=== PATIENT | male | born 1995 | race Caucasian/White ===

== ENCOUNTER → 2021-07-11 09:04 | Outpatient (CLI) | payer OTHER, SELFPAY ==
[2021-07-11 10:14] LABS: Alanine Aminotransferase 36 U/L (12-78); Albumin Level 4.3 g/dl (3.5-5.0); Albumin/Globulin Ratio 1.4 (1.1-1.8); Alkaline Phosphatase 112 U/L (38-126); Anion Gap 15.5 mEq/L (5-15); Aspartate Amino Transferase 48 U/L (17-59); Bilirubin,Total 0.4 mg/dl (0.2-1.3); Blood Urea Nitrogen 17 mg/dl (9-20); Calcium 9.3 mg/dl (8.4-10.2); Carbon Dioxide 28 mmol/L (22.0-30.0); Chloride 101 mmol/L (98-107); Chol/HDL Ratio 3.4 (1-3.5); Cholesterol 168 mg/dl (140-200); Estimated Glomerular Filt Rate 89 ml/min (>60); GFR (African American) 108 ML/MIN (>60); Glucose 107 mg/dl (74-100); HDL Cholesterol 49 mg/dl (40-60); Potassium 4.5 mmoL/L (3.5-5.1); Sodium 140 mmol/L (136-145); Total Protein,Serum 7.3 g/dl (6.3-8.2); Triglycerides 74 mg/dl (30-150); VLDL Cholesterol 15 mg/dL (0-40)
[2021-07-11 10:25] LABS: Direct LDL Cholesterol 93.75 mg/dL (100-129)
== END ==
PROVIDERS: Visit Provider Family Medicine
DX: Z00.00 Encounter for general adult medical examination without abnormal findings (principal)
CPT/HCPCS: 36415; 80053; 80061

== ENCOUNTER → 2022-05-17 07:42 | Outpatient (CLI) | payer BC, SELFPAY ==
--- NOTE | 2022-05-17 07:43 | CT_ITS ---
FINAL REPORT TECHNIQUE: Axial CT images of the abdomen were obtained with oral and IV contrast. Coronal reformatted images were also obtained. This study was performed with techniques to keep radiation doses as low as reasonably achievable (ALARA). Individualized dose reduction techniques using automated exposure control or adjustment of mA and/or kV according to the patient''s size were employed. CLINICAL HISTORY: abdominal pain, hernia FINDINGS: There is mild bibasilar atelectasis. The liver has an unremarkable appearance, without evidence of mass. The gallbladder appears normal without evidence of gallstones. There is no evidence of biliary ductal dilatation. The pancreas appears normal. The spleen size is within normal limits. There is no evidence of renal mass or hydronephrosis. There is no evidence of adenopathy. No abnormal fluid collection is seen. There is a supraumbilical hernia containing fat only. The hernia orifice measures 16 mm in transverse dimension. The hernia sac measures 24 mm in transverse dimension. There is mild stranding of the fat in the hernia. IMPRESSION: No acute intra-abdominal abnormality. Supraumbilical hernia containing fat only. Reviewed, Interpreted and Dictated by Dwight Ferguson III, MD Transcribed by Jackeline Hay Authenticated and [facility]
== END ==
PROVIDERS: PCP Family Medicine; Visit Provider Surgery
DX: R10.9 Unspecified abdominal pain (principal)
CPT/HCPCS: 74160; Q9967

== ENCOUNTER → 2022-11-02 14:13 | Outpatient (CLI) | payer BC, SELFPAY ==
[2022-11-02 15:10] LABS: Basophils # 0.1 K/mm3 (0-0.2); Basophils % 0.7 % (0.1-2.0); Eosinophils # 0.1 K/mm3 (0.0-0.4); Eosinophils % 1.4 % (0.1-12.0); Hematocrit 48.7 % (42.0-52.0); Hemoglobin 15.9 g/dL (14.1-18.0); Lymphocytes # 1.9 K/mm3 (0.7-4.5); Lymphocytes % 29.9 % (10-50); Mean Corpuscular HGB Conc 32.7 g/dL (31.8-35.4); Mean Corpuscular Hemoglobin 31.9 pg (27.0-31.2); Mean Corpuscular Volume 97.6 fl (80-94); Mean Platelet Volume 9.4 fl (7.4-10.4); Monocytes # 0.6 K/mm3 (0.1-1.0); Monocytes % 9.3 % (1.7-9.3); Neutrophils # 3.8 K/mm3 (1.8-7.8); Neutrophils % 58.7 % (37.0-80.0); Platelet Count 226 K/mm3 (142-424); Red Blood Count 4.99 M/mm3 (4.60-6.20); Red Cell Distribution Width 13.2 % (11.5-17.5); White Blood Count 6.5 K/mm3 (4.8-10.8)
[2022-11-02 15:27] LABS: Anion Gap 13.4 mEq/L (5-15); Blood Urea Nitrogen 25 mg/dl (9-20); Calcium 8.8 mg/dl (8.4-10.2); Carbon Dioxide 27 mmol/L (22.0-30.0); Chloride 104 mmol/L (98-107); Estimated Glomerular Filt Rate 79 ml/min (>60); GFR (African American) 96 ML/MIN (>60); Glucose 71 mg/dl (74-100); Potassium 4.4 mmoL/L (3.5-5.1); Sodium 140 mmol/L (136-145)
== END ==
PROVIDERS: PCP Emergency Medicine; Visit Provider Surgery
DX: Z01.812 Encounter for preprocedural laboratory examination (principal); K42.9 Umbilical hernia without obstruction or gangrene
CPT/HCPCS: 36415; 80048; 85025

== ENCOUNTER 2022-11-08 06:04 | Day surgery (SDC) | payer BC, SELFPAY ==
[2022-11-04 09:43] VITALS: BMI 29.7
[2022-11-08] VITALS (12 sets, daily range): BP systolic 125–153; BP diastolic 53–83; PULSE 72–86; RESP 16–18; TEMP 36.6–43; O2SAT 90–97
--- NOTE | 2022-11-08 06:50 | P.HP_ITS ---
HPI HPI HPI: Patient presents for umbilical/ventral hernia repair.? He is a 27-year-old male referred by Dr. Nhan Solitario for umbilical hernia.? I had initially seen him in the office on 05/11/2022.? He works in maintenance at [employer].? He did have an umbilical hernia repair done as an 6-year-old for persistent hernia.? Over several months he has noticed a bulge toward the superior aspect of his umbilical area.? He states that his has noticed that.? He does lift heavy weights at [employer] and has noticed a bulge when straining.? He has not had any significant pain from this however.? He wished to wait until at least September if possible to undergo any potential surgery.? When I saw him in the office he had a clinical hernia superior to his umbilicus but I was unable to palpate the exact size.? He underwent CT scan which revealed supraumbilical hernia with a defect measuring about 16 mm.? . [facility] Disclaimer: The information contained in this section may have been updated after the lennyen zayra was seen, as this information can be updated by other users. Medical History Allergies History of gastroesophageal reflux (GERD) Surgical History History of hernia surgery Family History Skin cancer Colon cancer Social History Smoking Status: Never smoker alcohol intake: never substance use type: denies use current occupational status: employed Travel in the last 8 weeks: None Meds Home Medications and Allergies Home Medications Medication Instructions Recorded Confirmed Type testosterone 100 mg/mL 200 mg IM WEEKLY Supplement 11/04/22 11/04/22 History intramuscular suspension New Prescriptions to Start Prescriptions: Allergies Allergy/AdvReac Type Severity Reaction Status Date / Time No Known Allergies Allergy Verified 11/04/22 09:27 Exam Data for Last 24 hours Vital signs and Labs for Last 24 Hours: Temp Pulse Resp BP Pulse Ox 97.8 F 77 18 125/53 L 97 11/08/22 06:18 11/08/22 06:18 11/08/22 06:18 11/08/22 06:18 11/08/22 06:18 Constitutional Constitutional: no acute distress *Routine HEENT Exam Head: Present normocephalic Eye: Present EOMI ENT: Present mucous membranes moist *Routine Respiratory Exam Respiratory: Present CTA bilaterally *Routine Cardiovascular Exam Cardiovascular: Present RRR *Routine Abdominal Exam Abdominal: Present soft and hernia *Routine Rectal Exam Rectal:: deferred *Routine Genitalia Exam Genitalia:: deferred Assessment and Plan *Assessment and plan (1) Umbilical hernia: Status: Acute Category: Medical Code(s): K42.9 - Umbilical hernia without obstruction or gangrene Plan I discussed the options with the patient.? He would like to undergo repair.? I feel that given the nature of this hernia on imaging and examination that likely laparoscopically directed repair with likely placement of Bard Ventralex would be the most appropriate with placement of supraumbilical vertical incision.? Of course if laparoscopy reveals this to be larger than anticipated fully laparoscopic repair may be of benefit.
--- NOTE | 2022-11-08 06:58 | EXP.ANES.CKL ---
[facility] Disclaimer: The information contained in this section may have been updated after the patient was seen, as this information can be updated by other users. Medical History Allergies History of gastroesophageal reflux (GERD) Surgical History History of hernia surgery Family History Other Colon cancer Skin cancer Social History Smoking Status: Never smoker alcohol intake: never substance use type: denies use current occupational status: employed Travel in the last 8 weeks: None [facility] Anesthesia Checklist Patient Identification Patient Identification: Arm Band and Family Structural Data Admitted From: Direct Admit Planned Operative Procedure/s: Laparoscopic umbilical herrnia repair Consent for Planned Operative Procedure(s) Verified: Yes Verified Documents: Surgical Consent and History and Physical NPO Status Verified Time NPO: 00:00 Additional verifications Patient : No Anesthesia Reactions: No Hx Blood Transfusions: No Blood Transfusion Reaction: No Cephalosporin Allergy: No Previous Colonoscopy: No Neurological Assessment Level of Consciousness: Awake, Alert, Appropriate and Follows Commands Hx Seizures: No Numbness or tingling in extremities: No Anesthesia Plan Anesthesia Risk discussed: Yes ASA Class: I Anesthesia Type: General
--- NOTE | 2022-11-08 08:48 | EXP.OP.NOTE ---
Date of procedure: 11/08/22 Pre-op Diagnosis:: Umbilical hernia Post-op Diagnosis:: Same Procedure performed:: Laparoscopically directed open umbilical hernia repair for chronically incarcerated recurrent umbilical hernia with placement of 8 cm circular Bard ventral John mesh Surgeon:: Dwight Marquez MD ASSOCIATE MUSIC PROFESSOR:: Other Anesthesia: GETA Estimated blood loss (mL): 15 Clinical Note:: Patient presents for umbilical/ventral hernia repair.? He is a 27-year-old male referred by Dr. Nhan Solitario for umbilical hernia.? I had initially seen him in the office on 05/11/2022.? He works in maintenance at [employer].? He did have an umbilical hernia repair done as an 6-year-old for persistent hernia.? Over several months he has noticed a bulge toward the superior aspect of his umbilical area.? He states that his has noticed that.? He does lift heavy weights at [employer] and has noticed a bulge when straining.? He has not had any significant pain from this however.? He wished to wait until at least September if possible to undergo any potential surgery.? When I saw him in the office he had a clinical hernia superior to his umbilicus but I was unable to palpate the exact size.? He underwent CT scan which revealed supraumbilical hernia with a defect measuring about 16 mm.? . Operative findings:: Patient had a small to moderate defect measuring up to about 2 cm as a supraumbilical recurrent umbilical hernia with chronically incarcerated preperitoneal fatty tissues and omentum. Operative note:: Patient was taken the operating room. He was given preoperative intravenous antibiotics. In the operating room he was placed in a supine position. General anesthesia was induced. Abdomen was prepped and draped in the standard surgical fashion. Through a 5 mm incision in the left subcostal area 5 mm trocar was inserted carefully under laparoscopic guidance. CO2 pneumoperitoneum was achieved to 15 mmHg. Laparoscopic surveillance was carried out. There was evidence of herniated omentum and preperitoneal fat with some peritoneal adhesions. 5 mm trocar was inserted in the left lower abdomen. Using Metzenbaum dissection with some use of DEIDRA ultrasonic robotic mary ann the peritoneal attachments surrounding the hernia defect were taken down and divided. The hernia contents were reduced as there appeared to be chronically incarcerated omentum. Dissection was carried out superiorly mobilizing the falciform ligament to allow for adequate mesh placement. Hernia defect was then inspected. This measured about 16 to 20 mm. There was a moderate hernia sac. Plan was made for placement of Ventralex through incision over the hernia. CO2 pneumoperitoneum was evacuated. Transverse incision was made overlying the hernia defect. There was very limited tissue at this location due to thinning of the tissues from chronic hernia. The surrounding peritoneum of the hernia sac was dissected free from the subcutaneous tissues down to healthy fascia. Given the nature of the hernia and the patient's lifestyle and 8 cm Bard Ventralex mesh was brought onto the field and inserted through the defect. CO2 pneumoperitoneum was reestablished. It was oriented intracorporeally for a generous fascial overlap. CO2 pneumoperitoneum was evacuated once again. The mesh was secured superiorly and inferiorly to the fascia with 2-0 PDS suturing the tails of the mesh to the fascia. The mesh tails was then cut flush with the fascia. Pneumoperitoneum was reestablished. The mesh was observed to be in a good position. A few placement tacks of the OPTi fix were used prior to suturing the mesh and at this time additional OPTi fix securing tacks were used to assure excellent placement of mesh. He did require placement of an additional 5 mm trocar in the right lower abdomen. There was good hemostasis. Trochars were then removed the CO2 pneumoperitoneum was evacuated. Local anesthetic was infiltrated. Umbilical subdermal's was
--- NOTE | 2022-11-08 09:00 | EXP.ANES.I ---
[facility] Anesthesia Record Part I Anesthesia Record I Intake, IV Amount: 1,000 Estimated blood loss (mL): 15 Urine output (mL): 0 Blood Pressure: 129/77 SaO2: 90 Pulse Rate: 77 Respiratory Rate: 16 Temperature: 99 F Patient is:: Drowsy and Stable Stable to PACU at:: 08:53
--- NOTE | 2022-11-08 09:38 | P.PNANES_ITS ---
[facility] Anesthesia Record Part II Anesthesia Record Part II Discharge Time: 09:23 Destination: Surgical Day Care (OP Surgery) PACU nurse assessment reviewed?: Yes Patient Condition:: Good Anesthesia Complications:: None Swallowing reflex intact?: Yes Cyanosis?: No Blood Pressure: 127/83 Pulse Rate: 86 Temperature: 98.2 F Mental Status: Alert & Oriented Pain level:: 0 Nausea and/or vomitting:: None Intake, IV Amount: 0
== END 2022-11-08 10:00 | disposition home or self-care (01) ==
PROVIDERS: PCP Emergency Medicine; Visit Provider Surgery
PROC: 0WQF4ZZ Repair Abdominal Wall, Percutaneous Endoscopic Approach (ICD-10-PCS; CPT 49614; principal; 2022-11-08 07:30)
DX: K42.0 Umbilical hernia with obstruction, without gangrene (principal)
CPT/HCPCS: 49614; 96374; C1781; J2405

== ENCOUNTER → 2022-12-07 14:07 | Outpatient (CLI) | payer BC, SELFPAY ==
--- NOTE | 2022-12-07 14:11 | XR_ITS ---
FINAL REPORT CLINICAL HISTORY: cough, soa x 4 weeks FINDINGS: Two views of the chest were obtained. The heart size and pulmonary vascularity are within normal limits. The mediastinum is normal. No acute pulmonary abnormality is identified. There is no pneumothorax. The bony thorax is intact. IMPRESSION: No active cardiopulmonary disease. Reviewed, Interpreted and Dictated by Dwight Ferguson III, MD Transcribed by Mandi Anderson Authenticated and . [facility]
== END ==
PROVIDERS: PCP Family Medicine; Visit Provider Surgery
DX: R05.9 Cough, unspecified (principal)
CPT/HCPCS: 71046